=== PATIENT | male | born 1950 | race Caucasian/White ===

== ENCOUNTER 2018-11-22 11:01 | Emergency (ER) | payer OTHER ==
[2018-11-22] MEDS ORDERED: HYOSCYAMINE SULFATE 0.125 MG TAB PO ONE (11:18)
[2018-11-22] MEDS ORDERED: MAG HYDROX/AL HYDROX/SIMETH 30 ML UDCUP PO ONE ×2 (11:18→14:53)
[2018-11-22] MEDS ORDERED: LIDOCAINE 2% VISCOUS 15 ML UDCUP PO ONE (11:18)
[2018-11-22 11:28] LABS: PLATELET COUNT 255 10^3/uL (150-400)
--- NOTE | 2018-11-22 11:28 | CPEKG ---
Test Reason : OPEN Blood Pressure : / mmHG Vent. Rate : 077 BPM Atrial Rate : 086 BPM P-R Int : 063 ms QRS Dur : 078 ms QT Int : 391 ms P-R-T Axes : 000 047 025 degrees QTc Int : 443 ms Atrial fibrillation Low voltage, extremity and precordial leads Probable anteroseptal infarct, old Confirmed by Jose Alfredo Grider ([id number]) on 11/22/2018 11:27:56 AM Referred By: Confirmed By:Jose Alfredo Grider
--- NOTE | 2018-11-22 11:29 | EDPHY ---
H & P Time Seen by Provider: 11/22/18 11:07 HPI/ROS: CHIEF COMPLAINT: Very bad heartburn HISTORY OF PRESENT ILLNESS: Patient is visiting his son, has been in [place] for about a week from [place]. He has a history of atrial fibrillation and is on warfarin, has a history of stroke in the past. No history of CAD or IL. At 6:00 a.m. today started getting what he describes as "very bad heartburn " with epigastric burning discomfort radiating up into his chest not relieved with antacid or Pepto-Bismol. No neck or back symptoms, no radiation to the arm , no weakness or numbness in extremities, no vomiting or diarrhea, not short of breath. Symptoms moderate, constant, and persistent in the emergency department. He and his say that he gets heartburn symptoms just like this a lot, and these are identical to previous, but the only thing that is different today is that his symptoms were not relieved by antacid or Pepto- Bismol like they usually are. REVIEW OF SYSTEMS: Eye: no change in vision ENT: no sore throat Cardiac: HPI no palpitations or syncope Pulmonary: no cough or SOB Abdomen: HPI Musculoskeletal: no back pain Skin: no rash Neuro: no headache Constitutional: no fever : no urinary symptoms A comprehensive 10 point review of systems is otherwise negative aside from elements mentioned in the history of present illness. PAST MEDICAL HISTORY: Includes atrial fibrillation on warfarin, stroke, hypertension, cholesterol, diabetes on metformin Social history: Visiting from [place] General Appearance: Alert and conversant, cooperative. Eyes: No scleral icterus. ENT, Mouth: Normal mucous membranes. Respiratory: Normal respiratory effort, breath sounds equal, lungs are clear to auscultation. No rales. Cardiovascular: Regular rate and rhythm. No murmur. Gastrointestinal: Abdomen is soft and non tender. Negative Cano sign, no right upper quadrant tenderness. Neurological: Alert, face symmetric, normal motor and sensory in extremities. Skin: Warm and dry, no rashes. Musculoskeletal: No peripheral edema. No calf tenderness. Psychiatric: Not agitated. Emergency Department course/MDM: EKG and troponin, lipase and LFTs, protime and chest x-ray. GI cocktail given; made his symptoms go away and for a while he felt better. 1316: Examined, now his symptoms are back, feels uncomfortable. Protonix IV. 1450: Symptoms are coming back again a little bit, Maalox recommended and will ask that he double his omeprazole. I think the most likely thing is the patient has exacerbation of his GERD. ACS and IL is considered but I think it is less likely clinically. Serial troponin negative with constant symptoms since 600 today. Patient has a heart score greater than 3 but does not want to be admitted for further evaluation which I think is reasonable. He is warned that 100% excluding ACS or IL would require admission for further evaluation; says he understands, accepts risk. Differential considered including but not limited to pancreatitis, gallstones, GERD, ACS or IL, perforation, gastritis. Smoking Status: Never smoked Constitutional: Initial Vital Signs Temperature (C) 36.5 C 11/22/18 11:04 Heart Rate 82 11/22/18 11:04 Respiratory Rate 18 11/22/18 11:04 Blood Pressure 144/105 H 11/22/18 11:04 O2 Sat (%) 96 11/22/18 11:04 O2 Delivery Mode Room Air Allergies/Adverse Reactions: No Known Allergies Allergy (Unverified 11/22/18 11:02) Home Medications: Medication Instructions Recorded Atorvastatin Calcium 11/22/18 Lisinopril 11/22/18 Metoprolol Succinate 11/22/18 Warfarin Sodium 11/22/18 Medical Decision Making - Diagnostics EKG Interpretation: 12-lead EKG interpreted by me; official reading is in computer system. My interpretation is atrial fibrillation rate 77, Q-waves in V1 and V2 noted. Imaging Results: Imaging Impressions Chest X-Ray 11/22/18 11:19 Impression: 1. Elevated right hemidiaphragm of unknown chronicity. If there is concern for paralysis, consider fluoroscopic evaluation "sniff test". 2. Incomplete ankylosing spondylitis. Imaging: I viewed and interpreted images myself - Data Points Laboratory Results: Laboratory Results 11/22/18 11:10 11/22/18 11:10 11/22/18 11/22/18 11/22/18 14:59 11:17 11:10 WBC RBC Hgb Hct MCV MCH MCHC RDW Plt Count MPV Neut % (Auto) Lymph % (Auto) [place] % (Auto) Eos % (Auto) Baso % (Auto) Nucleat RBC Rel Count Absolute Neuts (auto) Absolute Lymphs (auto) Absolute Monos (auto) Absolute Eos (auto) Absolute Basos (auto) Absolute Nucleated RBC Immature Gran % Immature Gran # PT 31.6 SEC H SEC (12.0-15.0) INR 3.08 H (0.83-1.16) Sodium Potassium Chloride Carbon Dioxide Anion Gap BUN Creatinine Estimated GFR Glucose Calcium Total Bilirubin Conjugated Bilirubin Unconjugated Bilirubin AST ALT Alkaline Phosphatase POC Troponin I 0.00 ng/mL ng/mL 0.01 ng/mL ng/mL (0.00-0.08) (0.00-0.08) Total Protein Albumin Lipase 11/22/18 11/22/18 11:10 11:10 WBC 6.98 10^3/uL 10^3/uL (3.80-9.50) RBC 4.26 10^6/uL L 10^6/uL (4.40-6.38) Hgb 12.7 g/dL L g/dL (13.7-17.5) Hct 37.1 % L % (40.0-51.0) MCV 87.1 fL fL (81.5-99.8) MCH 29.8 pg pg (27.9-34.1) MCHC 34.2 g/dL g/dL (32.4-36.7) RDW 13.2 % % (11.5-15.2) Plt Count 255 10^3/uL 10^3/uL (150-400) MPV 9.8 fL fL (8.7-11.7) Neut % (Auto) 77.4 % H % (39.3-74.2) Lymph % (Auto) 17.3 % % (15.0-45.0) [place] % (Auto) 4.3 % L % (4.5-13.0) Eos % (Auto) 0.3 % L % (0.6-7.6) Baso % (Auto) 0.4 % % (0.3-1.7) Nucleat RBC Rel Count 0.0 % % (0.0-0.2) Absolute Neuts (auto) 5.40 10^3/uL 10^3/uL (1.70-6.50) Absolute Lymphs (auto) 1.21 10^3/uL 10^3/uL (1.00-3.00) Absolute Monos (auto) 0.30 10^3/uL 10^3/uL (0.30-0.80) Absolute Eos (auto) 0.02 10^3/uL L 10^3/uL (0.03-0.40) Absolute Basos (auto) 0.03 10^3/uL 10^3/uL (0.02-0.10) Absolute Nucleated RBC 0.00 10^3/uL 10^3/uL (0-0.01) Immature Gran % 0.3 % % (0.0-1.1) Immature Gran # 0.02 10^3/uL 10^3/uL (0.00-0.10) PT INR Sodium 136 mEq/L mEq/L (135-145) Potassium 3.9 mEq/L mEq/L (3.5-5.2) Chloride 100 mEq/L mEq/L (97-110) Carbon Dioxide 24 mEq/l mEq/l (22-31) Anion Gap 12 mEq/L mEq/L (6-14) BUN 11 mg/dL mg/dL (7-23) Creatinine 1.0 mg/dL mg/dL (0.7-1.3) Estimated GFR > 60 Glucose 173 mg/dL H mg/dL (70-100) Calcium 8.5 mg/dL mg/dL (8.5-10.4) Total Bilirubin 0.7 mg/dL mg/dL (0.1-1.4) Conjugated Bilirubin 0.2 mg/dL mg/dL (0.0-0.5) Unconjugated Bilirubin 0.5 mg/dL mg/dL (0.0-1.1) AST 21 IU/L IU/L (17-59) ALT 31 IU/L IU/L (21-72) Alkaline Phosphatase 96 IU/L IU/L (38-126) POC Troponin I Total Protein 7.1 g/dL g/dL (6.3-8.2) Albumin 4.1 g/dL g/dL (3.5-5.0) Lipase 142 IU/L IU/L (23-300) Medications Given: Discontinued Medications Al Hydroxide/Mg Hydroxide (Maalox Susp) 30 ml PO ONCE ONE Stop: 11/22/18 11:19 Last Admin: 11/22/18 11:36 Dose: 30 ml Al Hydroxide/Mg Hydroxide (Maalox Susp) 30 ml PO ONCE ONE Stop: 11/22/18 14:54 Last Admin: 11/22/18 14:59 Dose: 30 ml Hyoscyamine Sulfate (Levsin, Hyomax-Sl) 0.25 mg PO ONCE ONE Stop: 11/22/18 11:19 Last Admin: 11/22/18 11:36 Dose: 0.25 mg Lidocaine (Lidocaine 2% Viscous) 15 ml PO ONCE ONE Stop: 11/22/18 11:19 Last Admin: 11/22/18 11:36 Dose: 15 ml Pantoprazole Sodium (Protonix) 40 mg IVP EDNOW ONE Stop: 11/22/18 13:17 Last Admin: 11/22/18 13:19 Dose: 40 mg Point of Care Test Results: Chemistry 11/22/18 11/22/18 14:59 11:17 POC Troponin I 0.00 ng/mL ng/mL 0.01 ng/mL ng/mL (0.00-0.08) (0.00-0.08) Departure - Departure Disposition: Home, Routine, Self-Care Clinical Impression: GERD (gastroesophageal reflux disease) Qualifiers: Esophagitis presence: esophagitis presence not specified Qualified Code(s): K21.9 - Gastro-esophageal reflux disease without esophagitis Condition: Good Instructions: Gastroesophageal Reflux Disease (ED) Additional Instructions: Increase the omeprazole to 40 mg orally twice a day. You can use Maalox or Mylanta 30 mL at a time every 4-6 hours for the next 2 days. Please return if you get worsening or severe symptoms. Referrals: Rama Field MD [Medical Doctor] - As per Instructions ([facility] PCP) NONE *PRIMARY CARE P,. [Primary Care Provider] - As per Instructions (Please follow-up with your primary care doctor when you get back to [place].)
[2018-11-22 11:44] LABS: INR 3.08 (0.83-1.16); PROTIME(PATIENT) 31.6 SEC (12.0-15.0)
[2018-11-22] MEDS ORDERED: PANTOPRAZOLE SODIUM 40 MG VIAL IVP ONE (13:16)
[2018-11-22 15:37] VITALS: BP 145/87
== END 2018-11-22 15:35 | disposition home or self-care (01) ==
DX: K21.9 Gastro-esophageal reflux disease without esophagitis (principal); I48.91 Unspecified atrial fibrillation; I10 Essential (primary) hypertension; E11.9 Type 2 diabetes mellitus without complications; E78.00 Pure hypercholesterolemia, unspecified; Z79.899 Other long term (current) drug therapy; Z79.01 Long term (current) use of anticoagulants
CPT/HCPCS: 84484-ER; 96374